=== PATIENT | female | born 1995 | race Caucasian/White ===

== ENCOUNTER 2025-01-20 13:47 | Outpatient (CLI) | payer BC, SELFPAY ==
[2025-01-23 12:19] LABS: HPV Source Cervix; HPV, High Risk by TMA Not Detected
== END 2025-01-20 13:48 | disposition home or self-care (01) ==
PROVIDERS: PCP Family Medicine; Visit Provider Registered Nurse
DX: Z12.4 Encounter for screening for malignant neoplasm of cervix (principal); Z11.51 Encounter for screening for human papillomavirus (HPV); Z13.6 Encounter for screening for cardiovascular disorders
CPT/HCPCS: 80061; 87624; 87625; 88141; 88142